=== PATIENT | male | born 1995 | race Caucasian/White ===

== ENCOUNTER → 2018-10-05 | Outpatient (CLI) | payer BC ==
[2018-10-05 08:35] LABS: Basophils % (A) 1 %; Eosinophils # (A) 0.1 k/uL (0-0.7); Eosinophils % (A) 2 %; HCT 48.4 % (39.0-53.0); HGB 15.9 gm/dL (13.0-17.5); Lymphocytes # (A) 1.8 k/uL (1.0-4.8); Lymphocytes % (A) 32 %; MCH 28.9 pg (25.0-35.0); MCHC 32.9 g/dL (31.0-37.0); MCV 87.8 fL (80.0-100.0); Monocytes # (A) 0.3 k/uL (0-1.0); Monocytes % (A) 6 %; Neutrophils # (A) 3.3 k/uL (1.3-7.7); Neutrophils % (A) 58 %; Platelet Count 236 k/uL (150-450); RBC 5.51 m/uL (4.30-5.90); RDW 12.4 % (11.5-15.5); WBC 5.6 k/uL (3.8-10.6)
[2018-10-05 12:58] LABS: Erythrocyte Sedimentation Rate 2 mm/hr (0-15)
[2018-10-05 16:50] LABS: ALT 15 U/L (10-49); AST 16 U/L (14-35); Albumin/Globulin Ratio 2.33 (1.60-3.17); Alkaline Phosphatase 49 U/L (41-126); C Reactive Protein <0.4 mg/dL (0.0-0.8); Carbon Dioxide 29.4 mmol/L (21.6-31.8); Chloride 106 mmol/L (96-109); Globulin 2.1 g/dL (1.6-3.3); Glucose 102 mg/dL (70-110); Potassium 4.7 mmol/L (3.5-5.5); Sodium 139 mmol/L (135-145); Total Bilirubin 0.9 mg/dL (0.3-1.2)
[2018-10-05 17:00] LABS: Rheumatoid Factor 9 IU/mL (0-15)
[2018-10-07 10:45] LABS: HLA B27 NEGATIVE
== END | disposition home or self-care (01) ==
LOC: LABWHC1 08:11
PROVIDERS: ATTEND Family Medicine
DX: G61.9 Inflammatory polyneuropathy, unspecified (principal); M13.0 Polyarthritis, unspecified; M54.2 Cervicalgia; M79.641 Pain in right hand; M79.642 Pain in left hand
CPT/HCPCS: 36415; 80053; 84439; 84443; 85025; 85652; 86038; 86140; 86431; 86812

== ENCOUNTER 2018-11-22 20:44 | Emergency (ER) | payer BC ==
[2018-11-22 21:34] VITALS: RESP 18
--- NOTE | 2018-11-22 22:05 | XR ---
EXAMINATION TYPE: XR hand complete LT DATE OF EXAM: 11/22/2018 COMPARISON: NONE HISTORY: Foreign body. Pain TECHNIQUE: 3 views FINDINGS: There is a broken machine screw foreign body embedded in the superficial soft tissues betwe en the first and second metacarpal head. I see no fracture nor dislocation. Joint spaces are normal. IMPRESSION: Superficial metallic foreign body as above. No fracture seen.
[2018-11-22] MEDS ORDERED: LIDOCAINE 1% INJ 10MG/ML (20 ML MDV) SQ ONE (23:13)
[2018-11-22] MEDS ORDERED: DIPH,PERTUS(ACELL)TETVAC-LF 0.5 ML VIAL IM ONE (23:47)
--- NOTE | 2018-11-23 00:10 | ED ---
General Adult HPI - General Chief complaint: Extremity Injury, Upper Stated complaint: [place] in L hand Time Seen by Provider: 11/22/18 22:00 Source: patient Mode of arrival: ambulatory Limitations: no limitations - History of Present Illness Initial comments: Patient is a 22-year-old male presents emergency Department with a foreign body on his left hand. Patient states that he was using a drill and is lipped causing the screw to go between his first and second digit of the left hand. Patient denies any numbness or tingling. Patient reports full range of motion. Patient denies taking any medication to alleviate the pain patient is unaware of his tetanus status. Patient denies fever, nausea, vomiting, headache, lightheadedness, dizziness. - Related Data Allergies Allergy/AdvReac Type Severity Reaction Status Date / Time No Known Allergies Allergy Verified 11/22/18 21:34 Review of Systems ROS Statement: Those systems with pertinent positive or pertinent negative responses have been documented in the HPI. ROS Other: All systems not noted in ROS Statement are negative. Past Medical History Past Medical History: No Reported History History of Any Multi-Drug Resistant Organisms: None Reported Past Surgical History: Orthopedic Surgery Additional Past Surgical History / Comment(s): foot Past Psychological History: No Psychological Hx Reported Smoking Status: Never smoker Past Alcohol Use History: None Reported Past Drug Use History: None Reported General Exam Limitations: no limitations General appearance: alert, in no apparent distress Head exam: Present: atraumatic, normocephalic, normal inspection Eye exam: Present: normal appearance, PERRL, EOMI Pupils: Present: normal accommodation Neck exam: Present: normal inspection Respiratory exam: Present: normal lung sounds bilaterally Cardiovascular Exam: Present: regular rate, normal rhythm, normal heart sounds Left Shoulder Exam: Present: normal inspection, full ROM Upper Arm exam: Present: normal inspection, full ROM Elbow exam: Present: normal inspection, full ROM Forearm Wrist exam: Present: normal inspection, full ROM. Absent: tenderness over anatomical snuff box, pain with axial thumb loading Hand Wrist exam: Present: tenderness (Mild), other (1.5 cm screw causing a puncture wound between first and second digit.). Absent: swelling, abrasion, laceration, ecchymosis, deformity, crepitus, dislocation, erythema, amputation Vascular: Present: normal capillary refill, radial pulse (+2), ulnar pulse (+2) Neurological exam: Present: alert, oriented X3 Psychiatric exam: Present: normal affect, normal mood Skin exam: Present: warm, intact, normal color Course Vital Signs 11/22/18 21:30 Temperature 98.6 F Pulse Rate 69 Respiratory 18 Rate Blood Pressure 126/93 O2 Sat by Pulse 97 Oximetry Medical Decision Making - Medical Decision Making Patient is a 22-year-old male presents emergency Department with a foreign body to his left hand. X-ray is negative for any acute fracture or dislocations. I removed the foreign body and closed the laceration with 3 sutures. Patient was given tetanus prophylaxis. Patient advised to follow primary care. Patient advised to return to emergency department if symptoms worsen. Patient advised to return after 10 days. Suture removal. Case discussed with physician. Disposition Clinical Impression: Foreign body hand Disposition: HOME SELF-CARE Condition: Stable Instructions (If sedation given, give patient instructions): Laceration (DC) Additional Instructions: Please follow with primary care. Please follow proper wound care instructions. Please return to emergency department if in 10 days for suture removal or sooner if symptoms worsen. Is patient prescribed a controlled substance at d/c from ED?: No Referrals: Constantin Zuniga Jr, [Primary Care Provider] - 1-2 days Time of Disposition: 00:10
[2018-11-23 00:26] VITALS: BP 146/69; PULSE 53; TEMP 98.2
--- NOTE | 2018-11-25 05:45 | CDI ---
Documentation Clarification OP Dear Jimy GREGORY, PAC Please provide complete foreign body removal from hand procedure note. Thank you, Nabor Rangel Car Packer If you have any questions, please contact Police Specialist at [phone] [facility]
== END 2018-11-23 00:26 | disposition home or self-care (01) ==
LOC: EC 20:44
DX: S60.552A Superficial foreign body of left hand, initial encounter (principal); Z23 Encounter for immunization; W45.8XXA Other foreign body or object entering through skin, initial encounter
CPT/HCPCS: 73130; 90715; 99283; 12041; 90471; J2001

== ENCOUNTER → 2020-09-24 | Outpatient (CLI) | payer OTHER ==
--- NOTE | 2020-09-24 12:03 | US ---
EXAMINATION TYPE: US kidneys/renal and bladder DATE OF EXAM: 09/24/2020 COMPARISON: NONE CLINICAL HISTORY: 24-year-old male R35.0 urinary frequency. Urinary frequency for 2-3 years TECHNIQUE: Multiple sonographic images of the kidneys and bladder are obtained. FINDINGS: EXAM MEASUREMENTS: Right Kidney: 11.0 x 4.1 x 4.6 cm Left Kidney: 10.4 x 4.2 x 4.0 cm No hydronephrosis on either side. No gross abnormality of the urine distended bladder. Only the right ureteral jet is seen in the cours e of the exam. Complete emptying of the bladder after voiding. IMPRESSION: No hydronephrosis. Complete emptying of the bladder after voiding.
== END | disposition home or self-care (01) ==
LOC: RADUSWWP 07:08
PROVIDERS: ATTEND Urology
DX: R35.0 Frequency of micturition (principal)
CPT/HCPCS: 76770